=== PATIENT | male | born 1945 | race Caucasian/White ===

== ENCOUNTER → 2016-12-29 | Outpatient (CLI) | payer OTHER ==
--- NOTE | 2016-12-29 16:46 | REP ---
Chest x-ray: Two views: History: Respiratory condition. No comparison study. Findings: The lungs are hyperinflated and there are emphysematous changes and fibrotic changes in the upper lobes. Diffuse interstitial fibrosis pattern is seen in the lower lobes bilaterally. There is a somewhat ill-defined small mass-like opacity in the right lower lobe posteriorly, roughly 2.3 cm in diameter. This overlies the lower thoracic spine on the lateral radiograph. It may be over the medial portion of the diaphragm on the frontal view. I cannot exclude a lung mass. Chest CT scanning is recommended. The heart is not enlarged. The aorta is calcific. No bony destructive lesion is seen. Some vascular calcification is seen along the course of the carotid arteries bilaterally and in the thoracic aorta. Impression: 1. Diffuse interstitial fibrosis in the lung bases. Hyperinflation. Upper lobe emphysematous changes. 2. Question 2 cm right lower lobe lung mass. Recommend chest CT. Signed by Robert Cornelius MD 12/29/2016 04:51 P
== END ==
LOC: M SMT 10:44
PROVIDERS: ATTEND Internal Medicine Pulmonary Disease
DX: J68.4 Chronic respiratory conditions due to chemicals, gases, fumes and vapors (principal)

== ENCOUNTER → 2019-01-25 | Outpatient (CLI) | payer OTHER ==
--- NOTE | 2019-01-25 13:38 | REP ---
CHEST, TWO VIEWS: COMPARISON: 12/29/2016 Two views of the chest are performed. There is moderate to severe interstitial fibrosis bilaterally, primarily in the lung bases, with possible mild worsening in the lung bases bilaterally. The heart is not enlarged. There is calcification of the thoracic aorta. The mediastinal silhouette is unchanged. There are mild degenerative changes of the spine. IMPRESSION: Moderate to severe bibasilar fibrosis, possibly mildly worsened compared to the prior study of 12/29/2016. Electronically Signed by Ramirez Dean MD 01/28/2019 11:16 A
== END ==
LOC: M RAD 11:03
PROVIDERS: ATTEND Internal Medicine Pulmonary Disease
DX: J68.4 Chronic respiratory conditions due to chemicals, gases, fumes and vapors (principal)

== ENCOUNTER 2019-11-29 07:48 | Inpatient (IN) | payer BC, OTHER ==
[~2019-11-29] VITALS: Ht 165.1 cm; Wt 54.8 kg
[2019-11-29] MEDS ORDERED: ALBUTEROL SULFATE 2.5 MG/0.5 ML INH NEB SOLN INH ONE (08:00)
[2019-11-29] MEDS ORDERED: methylPREDNISolone INJ 125 MG/2 ML VIAL (J2930) IV ONE (08:00)
[2019-11-29] MEDS ORDERED: IPRATROPIUM 0.5MG/ALBUTEROL 2.5MG INH SOL UD 3ML (DUONEB)(J7620) NEB ONE (08:00)
[2019-11-29] MEDS ORDERED: ATOR40TA75 PO (08:03)
[2019-11-29] MEDS ORDERED: SPIR1CAP INH (08:03)
[2019-11-29] MEDS ORDERED: AMLO2.5T3 PO (08:03)
[2019-11-29] MEDS ORDERED: ADVA230A INH (08:03)
[2019-11-29] MEDS ORDERED: LATA0.0015 OU (08:03)
[2019-11-29] MEDS ORDERED: TAMS1CAP17 PO (08:03)
[2019-11-29] MEDS ORDERED: ALBU8.5H INH (08:03)
[2019-11-29] MEDS ORDERED: TIMO0.5S29 OU (08:03)
[2019-11-29] MEDS ORDERED: OXYC1TAB23 (08:03)
[2019-11-29] MEDS ORDERED: ALBU83IN INH (08:03)
[2019-11-29 08:31] LABS: VENOUS BASE EXCESS -5.2 (-2.0-2.0); VENOUS HCO3 21.1 MEQ/L (23.0-27.0); VENOUS O2 SATURATION 98.5 % (60.0-80.0); VENOUS PARTIAL PRESSURE CO2 43.3 mmHg (38.0-50.0); VENOUS PARTIAL PRESSURE O2 143.1 mmHg (30.0-50.0); VENOUS PH 7.305 UNITS (7.330-7.430); VENOUS STANDARD HCO3 20.3 MEQ/L; VENOUS TOTAL CO2 22.4 MEQ/L (24.0-28.0)
--- NOTE | 2019-11-29 08:41 | REP ---
Portable chest x-ray: Single view. History: Dyspnea and cough. Comparison chest x-ray: January 25 to was 1019. Findings: EKG monitoring electrodes overlie the chest. There is diffuse moderate interstitial fibrosis most pronounced in the bases. There are emphysematous changes in the upper lobes consistent with COPD as well. Pleural angles are sharp. No acute infiltrate is seen. Heart is not enlarged. Impression: Advanced COPD diffuse interstitial fibrosis pattern. No acute abnormality. Electronically Signed by Robert Cornelius MD 11/29/2019 08:33 A
[2019-11-29 08:43] LABS: BASO # 0.1 10^3/uL (0.0-0.2); HEMATOCRIT 51.9 % (42.0-52.0); HEMOGLOBIN 16.3 g/dl (13.5-17.5); LYMPH # 1.8 10^3/uL (1.5-5.0); LYMPH % 13.2 % (24.0-44.0); MEAN CORPUSCULAR HEMOGLOBIN 30.6 pg (27.0-33.0); MEAN CORPUSCULAR HGB CONC 31.4 g/dl (32.0-36.5); MEAN CORPUSCULAR VOLUME 97.4 fl (80.0-96.0); MONO % 7.6 % (0.0-5.0); NEUTROPHILS # 10.6 10^3/uL (1.5-8.5); NEUTROPHILS % 77.8 % (36.0-66.0); PLATELET COUNT, AUTOMATED 249 10^3/uL (150-450); RED BLOOD COUNT 5.33 10^6/uL (4.30-6.10); WHITE BLOOD COUNT 13.6 10^3/uL (4.0-10.0)
[2019-11-29 08:59] LABS: ALBUMIN 3.7 GM/DL (3.2-5.2); BILIRUBIN,DIRECT 0.2 MG/DL (0.0-0.2); BILIRUBIN,TOTAL 0.8 MG/DL (0.2-1.0); CK-MB VALUE MASS 13.2 NG/ML (<3.6); MB/CK RELATIVE INDEX 13.33 (< OR =4); THYROID STIMULATING HORMONE 4.68 uIU/ML (0.358-3.740); THYROXINE (T4) 8.9 UG/DL (4.5-12.0); TOTAL PROTEIN 8.6 GM/DL (6.4-8.2); TROPONIN I 0.1 NG/ML (< 0.10)
[2019-11-29] MEDS: TIOTROPIUM INHALER/CAPSULE (SPIRIVA) INH SCH (09:00)
[2019-11-29] MEDS ORDERED: DOCU100C16 PO ×2 (09:30)
[2019-11-29] MEDS ORDERED: ASPI81TA26 PO (09:30)
[2019-11-29] MEDS ORDERED: BISA5TAB77 PO (09:30)
[2019-11-29] MEDS ORDERED: GUAI400T9 PO (09:30)
[2019-11-29] MEDS ORDERED: MIRA3350 PO (09:30)
[2019-11-29] MEDS ORDERED: BRIM1OPD OU (09:30)
[2019-11-29] MEDS ORDERED: ACETAMINOPHEN TAB 650MG DOSE (2X325MG) PO PRN (11:00)
[2019-11-29 12:00] VITALS: BP 130/82
[2019-11-29] MEDS ORDERED: ALBUTEROL SULFATE 2.5 MG/0.5 ML INH NEB SOLN NEB PRN (12:00)
[2019-11-29] MEDS: methylPREDNISolone INJ 125 MG/2 ML VIAL (J2930) IV SCH ×2 (12:59→18:21)
[2019-11-29] MEDS ORDERED: FUROSEMIDE 20 MG/2 ML VIAL (J1940) IV ONE (13:15)
[2019-11-29] MEDS ORDERED: DOXYCYCLINE HYCLATE 100 MG TAB PO ONE (13:30)
[2019-11-29] MEDS ORDERED: DOCUSATE SODIUM 100 MG CAP PO PRN (13:30)
[2019-11-29] MEDS ORDERED: MIRALAX *UNIT DOSE* 17GM PACKET PO PRN (13:30)
[2019-11-29] MEDS ORDERED: SLF 3 ML SYR IV PRN (13:45)
[2019-11-29] MEDS: IPRATROPIUM 0.5MG/ALBUTEROL 2.5MG INH SOL UD 3ML (DUONEB)(J7620) NEB SCH ×2 (14:00→19:39)
[2019-11-29] MEDS: SLF 3 ML SYR IV SCH ×2 (15:12→20:48)
[2019-11-29 16:00] VITALS: BP 132/82
[2019-11-29 16:27] LABS: APPEARANCE, URINE CLEAR (CLEAR); BACTERIA, URINE AUTO NEGATIVE (NEGATIVE); BILIRUBIN, URINE AUTO NEGATIVE (NEGATIVE); BLOOD, URINE BLOOD NEGATIVE (NEGATIVE); COLOR, URINE YELLOW (YELLOW); GLUCOSE, URINE (UA) AUTO NEGATIVE (NEGATIVE); KETONE, URINE AUTO NEGATIVE (NEGATIVE); LEUKOCYTE ESTERASE, URINE AUTO NEGATIVE (NEGATIVE); MUCUS, URINE SMALL (NEGATIVE); NITRITE, URINE AUTO NEGATIVE (NEGATIVE); PROTEIN, URINE AUTO NEGATIVE (NEGATIVE); RBC, URINE AUTO 1 /HPF (0-3); SPECIFIC GRAVITY URINE AUTO 1.009 (1.002-1.035); SQUAMOUS EPITHELIAL CELL UR AU 0 /HPF (0-6); UROBILINOGEN, URINE AUTO 0.2 mg/dL (0.0-2.0); WBC, URINE AUTO 0 /HPF (0-3)
[2019-11-29 20:00] VITALS: BP 124/71
[2019-11-29] MEDS: TIMOLOL MALEATE 0.5% OPHTH SOLN 5 ML OU SCH (20:46)
[2019-11-29] MEDS: BISACODYL 5 MG TAB PO SCH (20:47)
[2019-11-29] MEDS: BRIMONIDINE 0.1% OPHTH SOLN 5 ML OU SCH (20:47)
--- NOTE | 2019-11-29 22:09 | ECHO ---
DATE OF PROCEDURE: 11/29/2019 AGE: 74 GENDER: Male HEIGHT: 65 inches WEIGHT: 130 pounds BODY SURFACE AREA: 1.65 m2 PATIENT LOCATION: Inpatient, U, room 3230 REFERRING PHYSICIAN: Dong Fournier MD INDICATION: Dyspnea. 2-D MEASUREMENTS: RV: 4.8 cm LV: 3.6 cm Septum: 1.0 cm Posterior wall: 1.0 cm Aortic root: 3.3 cm LA: 2.8 cm LVEF: 65% DOPPLER MEASUREMENTS: AV: 1.0 m/s LVOT: 0.8 m/s LVOT: 1.9 cm ? MV-E: 41, A: 94, EA ratio: 0.4 Early mitral deceleration time: 400 ms E prime medial: 3.5 A prime medial: 13 E prime lateral: 5.6 Average E/E prime ratio: 9/PCWP: 13 mmHg PV: 0.6 m/s Pulmonary artery acceleration time: 70 ms RVSP: 48 mmHg IVC: 1.5 cm COMMENTS Normal sinus rhythm without apparent intraventricular conduction disturbance. Somewhat technically challenging study in light of the patient's body habitus but diagnostically useful information was still obtained. M-mode and two-dimensional echocardiography was performed with pulsed, continuous wave, color flow and tissue Doppler studies. Normal left ventricular size and wall thickness. Subtle septal wall motion abnormality suspected to be related to right ventricular pressure overload. Preserved global resting left ventricular systolic function. Normal left atrial size with grade 1 left ventricle (LV) diastolic dysfunction but currently normal estimated mean left atrial pressure. Moderately dilated right heart chambers with slightly reduced right ventricular free wall motion and Doppler evidence of at least moderate pulmonary hypertension. Normal inferior vena cava (IVC) size and collapse against an elevated central venous pressure at this time. Mild aortic valvular sclerosis without stenosis or insufficiency. Normal aortic dimensions. Mildly thickened mitral annulus but normal leaflet thickness and excursion with no posterior systolic buckling. Normal appearing tricuspid valve. No apparent intracardiac mass or pericardial effusion.
[2019-11-30] VITALS (11 sets, daily range): BP systolic 107–139; BP diastolic 62–84; O2SAT 88–93
[2019-11-30] MEDS: methylPREDNISolone INJ 125 MG/2 ML VIAL (J2930) IV SCH ×4 (00:04→17:55)
[2019-11-30] MEDS: IPRATROPIUM 0.5MG/ALBUTEROL 2.5MG INH SOL UD 3ML (DUONEB)(J7620) NEB SCH ×4 (00:39→19:56)
[2019-11-30] MEDS: SLF 3 ML SYR IV SCH ×3 (05:29→20:37)
[2019-11-30 06:10] LABS: ALBUMIN 3.3 GM/DL (3.2-5.2); ALT/SGPT 13 U/L (12-78); BILIRUBIN,TOTAL 0.6 MG/DL (0.2-1.0); BLOOD UREA NITROGEN 32 MG/DL (7-18); CARBON DIOXIDE LEVEL 22 MEQ/L (21-32); CHLORIDE LEVEL 106 MEQ/L (98-107); CREATININE FOR GFR 1.12 MG/DL (0.70-1.30); GLOMERULAR FILTRATION RATE > 60.0 (>42); GLUCOSE, FASTING 129 MG/DL (70-100); NT-PRO BNP 9219 PG/ML (<125); POTASSIUM SERUM 4.4 MEQ/L (3.5-5.1); SODIUM LEVEL 137 MEQ/L (136-145); TOTAL PROTEIN 8.1 GM/DL (6.4-8.2)
[2019-11-30] MEDS ORDERED: DOXYCYCLINE HYCLATE 100 MG TAB PO ONE (07:00)
[2019-11-30] MEDS: TIOTROPIUM INHALER/CAPSULE (SPIRIVA) INH SCH (07:52)
[2019-11-30] MEDS: ATORVASTATIN 20 MG TAB PO SCH (08:43)
[2019-11-30] MEDS: ASPIRIN 81 MG ENTERIC TAB PO SCH (08:43)
[2019-11-30] MEDS: TIMOLOL MALEATE 0.5% OPHTH SOLN 5 ML OU SCH ×2 (08:44→20:37)
[2019-11-30] MEDS: BRIMONIDINE 0.1% OPHTH SOLN 5 ML OU SCH ×2 (08:44→20:37)
[2019-11-30] MEDS: TAMSULOSIN 0.4 MG CAP PO SCH (08:44)
--- NOTE | 2019-11-30 11:31 | IPNPDOC ---
Subjective Date Seen The patient was seen on 11/30/19. Subjective Chief Complaint/HPI Seen and examined at bedside, states "breathing has improved quite a bit", denies cp/pressure, n/v/d, fever/chills, abdominal pain. General: Reports: Normal Appetite; Denies: Chills, Night Sweats, Fatigue, Malaise Pulmonary: Reports: Cough Objective Physical Examination General Exam: Positive: Alert, No Acute Distress Chest Exam: Positive: Diminished Assessment /Plan Assessment 1. acute COPD exacerbation - continue IV steroids, duonebs/albuterol prn. 2. HTN - continue amlodipine. 3. elevated BNP - ECHO with preserved LV systolic function, moderate pulmonary hypertension. - monitor. 4. BPH - continue tamsulosin. 5. HLD - continue atorvastatin. 6. DVT ppx - lovenox. VS, I&O, 24H, Fishbone Vital Signs/I&O Vital Signs Date Time Temp Pulse Resp B/P (MAP) Pulse Ox O2 Delivery O2 Flow Rate FiO2 11/30/19 08:44 73 127/73 11/30/19 08:00 15.0 40 11/30/19 08:00 97.8 20 90 Venturi Mask I&O- Last 24 Hours up to 6 AM 11/30/19 06:00 Intake Total 600 ml Output Total 575 ml Balance 25 ml Laboratory Data 24H LABS Laboratory Tests 2 11/29/19 12:42: Lactic Acid Followup at 4 Hours 2.3*H 11/29/19 13:57: Troponin I 0.13#H 11/29/19 16:09: Urine Color YELLOW, Urine Appearance CLEAR, Urine pH 6.0, Urine Specific [place] 1.009, Urine Protein NEGATIVE, Urine Glucose (Auto)(UA) NEGATIVE, Urine Ketones (Auto) NEGATIVE, Urine Blood NEGATIVE, Urine Nitrite NEGATIVE, Urine Bilirubin NEGATIVE, Urine Urobilinogen 0.2, Urine Leukocyte Esterase (Auto) NEGATIVE, Urine WBC (Auto) 0, Urine RBC (Auto) 1, Urine Hyaline Casts (Auto) 0, Urine Bacteria (Auto) NEGATIVE, Urine Squamous Epithelial Cells 0, Urine Mucus (Auto) SMALL, Urine Sperm (Auto) 11/29/19 19:51: Troponin I 0.11H 11/30/19 05:11: Anion Gap 9, Glomerular Filtration Rate > 60.0, Calcium Level 9.0, Total Bilirubin 0.6, Aspartate Amino Transf (AST/SGOT) 27, Alanine Aminotransferase (ALT/SGPT) 13, Alkaline Phosphatase 60, IC-Qnm-T-Type Natriuretic Peptide 9219H, Total Protein 8.1, Albumin 3.3, Albumin/Globulin Ratio 0.69L CBC/BMP Laboratory Tests 11/30/19 05:11 Microbiology Microbiology 11/29/19 Blood Culture - Preliminary, Resulted No growth after 24 hours . All specim... 11/29/19 Respiratory Virus Panel (PCR) (JUD) - Final, Complete 11/29/19 Blood Culture - Preliminary, Resulted No growth after 24 hours . All specim... DALTON GARCIA MD Nov 30, 2019 11:31
--- NOTE | 2019-11-30 14:59 | HPEPDOC ---
General Date of Admission Nov 29, 2019 at 09:33 Date of Service: Nov 29, 2019 Attending Physician: DALTON GARCIA MD Chief Complaint shortness of breath Source: Patient Exam Limitations: No limitations History of Present Illness 74 y/o male PMHx COPD presents with acutely worsening shortness of breath. Symptoms started 2 days prior with shortness of breath, steadily worsening since then. Denies fever/chills, chest pain/pressure, n/v/d, abdominal pain, urinary complaints. States has been compliant with his medications. Presents hypoxic, started on ventimask with improvement. Tx with duonebs and IV steroids. Labs with LA 2.3, WBC 13.6, troponin 0.10, ABG 7.305/43/143/21m no EKG changes. Admission for acute COPD exacerbation. Home Medications Scheduled Amlodipine Besylate (Amlodipine Besylate) 2.5 Mg Tablet, 2.5 MG PO DAILY, (Reported) Aspirin (Aspirin EC) 81 Mg Tablet.dr, 81 MG PO DAILY, (Reported) Atorvastatin Calcium (Atorvastatin Calcium) 40 Mg Tablet, 40 MG PO DAILY, (Reported) Bisacodyl (Bisacodyl) 5 Mg Tablet.dr, 10 MG PO QHS, (Reported) Brimonidine Tartrate (Alphagan P) 0.1% 5ML Drops, 1 DROP OU BID, (Reported) Fluticasone Propion/Salmeterol (Advair Hfa 230-21 Mcg Inhaler) 12 Gm Hfa.aer.ad, 2 PUFFS INH BID, (Reported) Guaifenesin (Guaifenesin) 400 Mg Tablet, 400 MG PO BID, (Reported) Latanoprost/Pf (Latanoprost 0.005% Eye Drop) 7.5 Ml Drops, 1 DROP OU QHS, (Reported) Tamsulosin Hcl (Tamsulosin HCl) 0.4 Mg Capsule, 0.4 MG PO DAILY, (Reported) Timolol Maleate (Timolol Maleate) 0.5% 5ML Drops, 1 DROP OU BID, (Reported) Tiotropium [place] (Spiriva) 18 Mcg Cap.w.dev, 1 CAP INH DAILY, (Reported) Scheduled PRN Albuterol Sulf (Albuterol Sulfate) 2.5 Mg/3 Ml Vial.neb, 1 VIAL INH QID PRN for SOB/WHEEZING, (Reported) Albuterol Sulfate (Albuterol Sulfate Hfa) 8.5 Gm Hfa.aer.ad, 2 PUFF INH QID PRN for SOB/WHEEZING, (Reported) Docusate Sodium (Docusate Sodium) 100 Mg Capsule, 300 MG PO QHS PRN for CONSTIPATION, (Reported) Polyethylene Glycol 3350 (Miralax) 119 Gm Powder, 17 GM PO DAILY PRN for CONSTIP ATION, (Reported) dilute in 8 ounces of water or juice Allergies Coded Allergies: No Known Allergies (Unverified , 11/29/19) Past Medical History Medical History COPD, HTN Surgical History none Family History Significant Family History: No pertinent family hx Social History * Smoker: former Smoker Alcohol: Denies Drugs: denies A-FIB/CHADSVASC A-FIB History Current/History of A-Fib/PAF?: No Current PO Anticoag Therapy: No Review of Systems Constitutional: Denies: Chills, Fever, Night Sweats Pulmonary: Reports: Dyspnea, Cough Physical Examination General Exam: Positive: Alert, No Acute Distress Chest Exam: Positive: Rhonchi Vital Signs Vital Signs Date Time Temp Pulse Resp B/P (MAP) Pulse Ox O2 Delivery O2 Flow Rate FiO2 11/29/19 12:24 98.1 11/29/19 11:48 79 11/29/19 11:45 127/75 (92) 11/29/19 11:33 20 87 Venturi Mask 50 11/29/19 10:33 15.0 Laboratory Data Labs 24H Laboratory Tests 2 11/29/19 08:15: Immature Granulocyte % (Auto) 0.4, Neutrophils (%) (Auto) 77.8H, Lymphocytes (%) (Auto) 13.2L, Monocytes (%) (Auto) 7.6H, Eosinophils (%) (Auto) 0.0, Basophils (%) (Auto) 1.0, Neutrophils # (Auto) 10.6H, Lymphocytes # (Auto) 1.8, Monocytes # (Auto) 1.0H, Eosinophils # (Auto) 0.0, Basophils # (Auto) 0.1, Nucleated Red Blood Cells % (auto) 0.0, Blood Gas Bicarbonate Standard 20.3, Venous Blood pH 7.305L, Venous Blood Partial Pressure CO2 43.3, Venous Blood Partial Pressure O2 143.1H, Venous Blood Total Carbon Dioxide 22.4L, Venous Blood HCO3 21.1L, Venous Blood Oxygen Saturation 98.5H, Venous Blood Base Excess -5.2L, Lactic Acid Level 2.3*H, Total Bilirubin 0.8, Direct Bilirubin 0.2, Aspartate Amino Transf (AST/SGOT) 31, Alanine Aminotransferase (ALT/SGPT) 17, Alkaline Phosphatase 77, Total Creatine Kinase 99, Creatine Kinase MB 13.2H, Creatine Kinase MB Relative Index 13.33H, Troponin I 0.10, EV-Rjz-Z-Type Natriuretic Peptide 9469H, Total Protein 8.6H, Albumin 3.7, Albumin/Globulin Ratio 0.76L, Thyroid Stimulating Hormone (TSH) 4.680H, Thyroxine (T4) 8.9 11/29/19 08:20: POC Glucose (Misc Panel) 97, POC Sodium (Misc Panel) 137, POC Potassium (Misc Panel) 5.1, POC Chloride (Misc Panel) 108, POC Total CO2 (Misc Panel) 23.0, POC Blood Urea Nitrogen (Misc Panel 26, POC Ionized Calcium (Misc Panel) 4.4L, POC Creatinine (Misc Panel) 0.8, POC Hematocrit (Misc Panel) 51.0 CBC/BMP Laboratory Tests 11/29/19 08:15 Microbiology Microbiology 11/29/19 Blood Culture, Received Pending 11/29/19 Respiratory Virus Panel (PCR) (JUD) - Final, Complete 11/29/19 Blood Culture, Received Pending Assessment/Plan 1. acute COPD exacerbation - admit to PCU. - IV steroids, duonebs/albuterol prn. - consult to pulmonary Dr. [place]. 2. HTN - continue amlodipine. 3. elevated BNP - no prior history of CHF in chart. - check cardiac ECHO. - lasix 20mg IV x 1 in ED. - repeat BNP. - serial troponins, telemetry monitoring. 4. BPH - continue tamsulosin. 5. HLD - continue atorvastatin. 6. DVT ppx - lovenox. Plan / VTE VTE Prophylaxis Ordered?: Yes DALTON GARCIA MD Nov 29, 2019 12:57
[2019-11-30] MEDS: DOXYCYCLINE HYCLATE 100 MG TAB PO SCH (20:36)
[2019-11-30] MEDS: BISACODYL 5 MG TAB PO SCH (20:37)
--- NOTE | 2019-11-30 22:09 | ECGEPIP ---
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
[2019-12-01] VITALS (11 sets, daily range): BP systolic 144; BP diastolic 83; O2SAT 90–95
[2019-12-01] MEDS: methylPREDNISolone INJ 125 MG/2 ML VIAL (J2930) IV SCH ×2 (00:52→05:45)
[2019-12-01] MEDS: IPRATROPIUM 0.5MG/ALBUTEROL 2.5MG INH SOL UD 3ML (DUONEB)(J7620) NEB SCH ×2 (02:07→07:53)
[2019-12-01 05:30] LABS: HEMATOCRIT 41.9 % (42.0-52.0); MEAN CORPUSCULAR HEMOGLOBIN 31.4 pg (27.0-33.0); MEAN CORPUSCULAR HGB CONC 32.9 g/dl (32.0-36.5); MEAN CORPUSCULAR VOLUME 95.4 fl (80.0-96.0); PLATELET COUNT, AUTOMATED 230 10^3/uL (150-450); RED BLOOD COUNT 4.39 10^6/uL (4.30-6.10); WHITE BLOOD COUNT 17.7 10^3/uL (4.0-10.0)
[2019-12-01 05:36] LABS: HEMOGLOBIN 13.8 g/dl (13.5-17.5)
[2019-12-01] MEDS: SLF 3 ML SYR IV SCH (05:45)
[2019-12-01 05:59] LABS: BLOOD UREA NITROGEN 32 MG/DL (7-18); CALCIUM LEVEL 8.6 MG/DL (8.8-10.2); CARBON DIOXIDE LEVEL 23 MEQ/L (21-32); CHLORIDE LEVEL 105 MEQ/L (98-107); CREATININE FOR GFR 0.92 MG/DL (0.70-1.30); GLOMERULAR FILTRATION RATE > 60.0 (>42); GLUCOSE, FASTING 138 MG/DL (70-100); POTASSIUM SERUM 4.1 MEQ/L (3.5-5.1); SODIUM LEVEL 136 MEQ/L (136-145)
[2019-12-01] MEDS: TIOTROPIUM INHALER/CAPSULE (SPIRIVA) INH SCH (07:54)
[2019-12-01] MEDS: ASPIRIN 81 MG ENTERIC TAB PO SCH (08:44)
[2019-12-01] MEDS: TAMSULOSIN 0.4 MG CAP PO SCH (08:45)
[2019-12-01] MEDS: BRIMONIDINE 0.1% OPHTH SOLN 5 ML OU SCH (08:45)
[2019-12-01] MEDS: DOXYCYCLINE HYCLATE 100 MG TAB PO SCH (08:45)
[2019-12-01] MEDS: TIMOLOL MALEATE 0.5% OPHTH SOLN 5 ML OU SCH (08:45)
[2019-12-01] MEDS: ATORVASTATIN 20 MG TAB PO SCH (08:45)
[2019-12-01] MEDS ORDERED: DOXY100T PO (09:09)
[2019-12-01] MEDS ORDERED: PRED20TA PO (09:09)
--- NOTE | 2019-12-01 09:12 | DS.PDOC ---
Discharge Summary General Date of Admission Nov 29, 2019 at 09:33 Date of Discharge 12/01/2019 Discharge Summary PROCEDURES PERFORMED DURING STAY: none ADMITTING DIAGNOSES: 1. acute exacerbation of COPD DISCHARGE DIAGNOSES: 1. acute exacerbation of COPD COMPLICATIONS/CHIEF COMPLAINT: shortness of breath HISTORY OF PRESENT ILLNESS: 74 y/o male PMHx COPD presents with acutely worsening shortness of breath. Symptoms started 2 days prior with shortness of breath, steadily worsening since then. Denies fever/chills, chest pain/pressure, n/v/d, abdominal pain, urinary complaints. States has been compliant with his medications. Presents hypoxic, started on ventimask with improvement. Tx with duonebs and IV steroids. Labs with LA 2.3, WBC 13.6, troponin 0.10, ABG 7.305/43/143/21m no EKG changes. HOSPITAL COURSE: Patient was admitted and treated for the following conditions: 1. acute COPD exacerbation - started on IV steroids, duonebs/albuterol prn, doxycycline. - patient made significant improvement and feels he is now back to his baseline. - patient will be discharged on quick steroid taper. - outpatient follow up with PCP and pulmonary. 2. HTN - continue amlodipine. - outpatient follow up. 3. elevated BNP - ECHO with preserved LV systolic function, moderate pulmonary hypertension. - elevated BNP likely secondary to pulmonary hypertension. 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 4. BPH - continue tamsulosin. 5. HLD - continue atorvastatin. DISCHARGE MEDICATIONS: Please see below. ALLERGIES: Please see below. PHYSICAL EXAMINATION ON DISCHARGE: VITAL SIGNS: Please see below. GENERAL: awake, NAD, alert HEENT: NCAT, anicteric sclera, PERRLA NECK: supple, no JVD, no thyromegaly CARDIOVASCULAR EXAMINATION: NS1S2, regular, no murmurs, rubs RESPIRATORY EXAMINATION: CTA b/l, no wheezes, rales, rhonchi, diminished ABDOMINAL EXAMINATION: NT/ND, positive bowel sounds x 4, no organomegaly EXTREMITIES: no cyanosis, clubbing, edema SKIN: warm, no rashes NEUROLOGICAL EXAMINATION: AAO x 3, motor 5/5, sensory grossly intact PSYCHIATRIC EXAMINATION: calm, cooperative, normal mood/affect LABORATORY DATA: Please see below. IMAGING: ECHO: Normal sinus rhythm without apparent intraventricular conduction disturbance. Somewhat technically challenging study in light of the patient's body habitus but diagnostically useful information was still obtained. M-mode and two-dimensional echocardiography was performed with pulsed, continuous wave, color flow and tissue Doppler studies. Normal left ventricular size and wall thickness. Subtle septal wall motion abnormality suspected to be related to right ventricular pressure overload. Preserved global resting left ventricular systolic function. Normal left atrial size with grade 1 left ventricle (LV) diastolic dysfunction but currently normal estimated mean left atrial pressure. Moderately dilated right heart chambers with slightly reduced right ventricular free wall motion and Doppler evidence of at least moderate pulmonary hypertension. Normal inferior vena cava (IVC) size and collapse against an elevated central venous pressure at this time. Mild aortic valvular sclerosis without stenosis or insufficiency. Normal aortic dimensions. Mildly thickened mitral annulus but normal leaflet thickness and excursion with no posterior systolic buckling. Normal appearing tricuspid valve. No apparent intracardiac mass or pericardial effusion. ACTIVITY: as tolerated DIET: as tolerated DISPOSITION: home DISCHARGE INSTRUCTIONS: 1. please follow up with PCP and plastic tool maker within 1-2 weeks following discharge. DISCHARGE CONDITION: stable TIME SPENT ON DISCHARGE: Greater than 30 minutes. Vital Signs/I&Os Vital Signs Date Time Temp Pulse Resp B/P (MAP) Pulse Ox O2 Delivery O2 Flow Rate FiO2 12/01/19 08:45 64 144/83 12/01/19 08:00 97.7 20 89 Nasal Cannula 3.0 11/30/19 16:00 35 I&O- Last 24 Hours up to 6 AM 12/01/19 06:00 Intake Total 1410 ml Output Total 575 ml Balance 835 ml Laboratory Data Labs 24H Laboratory Tests 2 12/01/19 05:19: Nucleated Red Blood Cells % (auto) 0.0, Anion Gap 8, Glomerular Filtration Rate > 60.0, Calcium Level 8.6L CBC/BMP Laboratory Tests 12/01/19 05:19 Microbiology Microbiology 11/29/19 Blood Culture - Preliminary, Resulted No growth after 24 hours . All specim... 11/29/19 Respiratory Virus Panel (PCR) (JUD) - Final, Complete 11/29/19 Blood Culture - Preliminary, Resulted No Growth after 48 hours. All Specime... Discharge Medications Scheduled Amlodipine Besylate (Amlodipine Besylate) 2.5 Mg Tablet, 2.5 MG PO DAILY, (Reported) Aspirin (Aspirin EC) 81 Mg Tablet.dr, 81 MG PO DAILY, (Reported) Atorvastatin Calcium (Atorvastatin Calcium) 40 Mg Tablet, 40 MG PO DAILY, (Reported) Bisacodyl (Bisacodyl) 5 Mg Tablet.dr, 10 MG PO QHS, (Reported) Brimonidine Tartrate (Alphagan P) 0.1% 5ML Drops, 1 DROP OU BID, (Reported) Doxycycline Hyclate (Doxycycline Hyclate) 100 Mg Tablet, 100 MG PO BID Fluticasone Propion/Salmeterol (Advair Hfa 230-21 Mcg Inhaler) 12 Gm Hfa.aer.ad, 2 PUFFS INH BID, (Reported) Guaifenesin (Guaifenesin) 400 Mg Tablet, 400 MG PO BID, (Reported) Latanoprost/Pf (Latanoprost 0.005% Eye Drop) 7.5 Ml Drops, 1 DROP OU QHS, (Reported) Prednisone (Prednisone) 20 Mg Tablet, 1 TAB PO DAILY Take 2 TABS by mouth daily for 2 days followed by 1 TAB by mouth daily for 2 days then stop. Tamsulosin Hcl (Tamsulosin HCl) 0.4 Mg Capsule, 0.4 MG PO DAILY, (Reported) Timolol Maleate (Timolol Maleate) 0.5% 5ML Drops, 1 DROP OU BID, (Reported) Tiotropium [place] (Spiriva) 18 Mcg Cap.w.dev, 1 CAP INH DAILY, (Reported) Scheduled PRN Albuterol Sulf (Albuterol Sulfate) 2.5 Mg/3 Ml Vial.neb, 1 VIAL INH QID PRN for SOB/WHEEZING, (Reported) Albuterol Sulfate (Albuterol Sulfate Hfa) 8.5 Gm Hfa.aer.ad, 2 PUFF INH QID PRN for SOB/WHEEZING, (Reported) Docusate Sodium (Docusate Sodium) 100 Mg Capsule, 300 MG PO QHS PRN for CONSTIPATION, (Reported) Polyethylene Glycol 3350 (Miralax) 119 Gm Powder, 17 GM PO DAILY PRN for CONSTIPATION, (Reported) dilute in 8 ounces of water or juice Allergies Coded Allergies: No Known Allergies (Unverified , 11/29/19) DALTON GARCIA MD Dec 01, 2019 09:12
== END 2019-12-01 10:20 | disposition home or self-care (01) | DRG 140 ==
LOC: M ED 07:48 → M ED INP 09:33 → ENRESERVDT 10:00 → ENRESERVTM 10:00 → M PCU 12:19
PROVIDERS: ADMIT Internal Medicine; ATTEND Internal Medicine
DX: J44.1 Chronic obstructive pulmonary disease with (acute) exacerbation (principal); I10 Essential (primary) hypertension; Z79.899 Other long term (current) drug therapy; Z79.82 Long term (current) use of aspirin; N40.0 Benign prostatic hyperplasia without lower urinary tract symptoms